=== PATIENT | female | born 1975 | race Caucasian/White ===

== ENCOUNTER 2016-04-11 12:10 | Emergency (ER) | payer OTHER, MEDICAID ==
[2016-04-11 12:21] VITALS: TEMP 97.9
--- NOTE | 2016-04-11 12:40 | CPEKG ---
Heart Rate: 81 RR Interval: 741 P-R Interval: 136 QRSD Interval: 84 QT Interval: 400 QTC Interval: 465 P Norco: 0 QRS Norco: 51 T Wave Norco: 40 EKG Severity - BORDERLINE ECG - EKG Impression: SINUS RHYTHM EKG Impression: BORDERLINE INFERIOR Q WAVES Electronically Signed By: Annmarie Castrejon 11-Apr-2016 16:31:26
[2016-04-11] MEDS ORDERED: IPRATROPIUM/ALBUTEROL 3 ML DEYVIAL IH ONE (12:56)
[2016-04-11 13:00] LABS: % IMMATURE GRANULYOCYTES 0.2 % (0.0-1.1); ABSOLUTE IMMATURE GRANULOCYTES 0.02 10^3/uL (0.00-0.10); ADD DIFF? NO; ADD MORPH? NO; ADD SCAN? NO; ATYPICAL LYMPHOCYTE FLAG 10 (0-99); FRAGMENT RBC FLAG 0 (0-99); HEMATOCRIT 39.3 % (38.0-47.0); LEFT SHIFT FLG 0 (0-99); LIPEMIA HEMOLYSIS FLAG 80 (0-99); MEAN CELL HEMOGLOBIN 30.8 pg (27.9-34.1); MEAN CELL HEMOGLOBIN CONCENTR. 33.1 g/dL (32.4-36.7); MEAN CELL VOLUME 93.1 fL (81.5-99.8); MEAN PLATELET VOLUME 10.4 fL (8.7-11.7); PLATELET CLUMPS FLAG 0 (0-99); PLATELET COUNT 339 10^3/uL (150-400); RED BLOOD CELL COUNT 4.22 10^6/uL (4.18-5.33); RED CELL DISTRIBUTION WIDTH 14.8 % (11.5-15.2)
[2016-04-11] MEDS ORDERED: LORazepam 2 MG/ML INJ IVP ONE (13:07)
--- NOTE | 2016-04-11 13:11 | EDPHY ---
H & P Stated Complaint: anxiety Source: Patient Exam Limitations: No limitations - Personal History LMP (Females 10-55): 1-7 Days Ago Current Tetanus Diphtheria and Acellular Pertussis (TDAP): Yes - Medical/Surgical History Hx Asthma: Yes Hx Chronic Respiratory Disease: No Hx Diabetes: No Hx Cardiac Disease: No Hx Renal Disease: No Hx Cirrhosis: No Hx Alcoholism: No Hx HIV/AIDS: No Hx Splenectomy or Spleen Trauma: No Other PMH: asthma, depression, aniety. - Family History Significant Family History: No pertinent family hx - Social History Smoking Status: Never smoked Alcohol Use: Rarely Drug Use: None Time Seen by Provider: 04/11/16 12:50 HPI/ROS: HPI: 40-year-old female presents to emergency department with chief concern anxiety, shortness of breath, non pleuritic 8/10 anterior chest pain 8/10 nonradiating. Symptoms onset suddenly last night when I had an asthma attack. [place] her asthma was flared up prior to bed and took 4 puffs of her albuterol rescue inhaler. Reports associated shortness of breath. Denies fever, dizziness , nasal congestion, cough, abdominal pain, nausea, vomiting, diarrhea. No lower extremity edema. Had a URI 2 weeks ago at which time her asthma was flared. Reports similar chest tightness when she has asthma attacks or anxiety attacks which she has from time to time. Denies personal or family history of coagulopathy, acute coronary syndrome, or coronary artery disease. Has a longstanding history of asthma that is well controlled on rescue inhaler only. No recent long car or plane travel. No calf pain or swelling. ROS:10 point review of systems is negative other than as stated in HPI (Yamileth Calix) - Social History Additional Social History: Lunch lady in the [employer] (Yamileth Calix) - Physical Exam Exam: Vital signs stable, reviewed by me General: Awake, alert, calm, cooperative. No acute distress. Head: Normalocephalic. Atraumatic. EENT: PERRLA. EOMI. No pallor or injection. Anicteric. No nystagmus. No injection. TMs intact bilaterally with normal landmarks. No rhinnorhea, nasal passages clear. Oropharynx without redness, exudates, or lesions. Tonsils 2+ bilaterally, no exudates. Neck: Supple, nontender. No lymphadenopathy. Full range of motion. No meningismus. Respiratory: Breathing unlabored. Breath sounds equal bilaterally and clear to auscultation. No adventitious sounds. CV: Chest nontender, atraumatic. Heart rate regular. No murmur, distal pulses 2+ bilaterally. No peripheral edema. Brisk cap refill all extremities. GI: Abdomen soft, nontender. Bowel sounds normoactive and positive x4 quadrants. Neuro: Alert. Oriented x 3. Speech clear. Nonfocal cranial nerves throughout. Sensation intact all extremities. Skin: Skin warm, dry, intact. No rashes, abrasions, or lacerations. Skin turgor normal. Extremities: Full range of motion in all 4 extremities. Strength 5+ all extremities. No calf pain or swelling bilaterally. Negative Homans bilaterally. (Yamileth Calix) Constitutional: Initial Vital Signs Temperature (C) 36.6 C 04/11/16 12:18 Heart Rate 80 04/11/16 12:18 Respiratory Rate 16 04/11/16 12:18 Blood Pressure 153/84 H 04/11/16 12:18 O2 Sat (%) 96 04/11/16 12:18 O2 Delivery Mode Room Air Allergies/Adverse Reactions: No Known Allergies Allergy (Unverified 06/23/12 14:27) Home Medications: Medication Instructions Recorded Miscellaneous Medical Supply [NO 06/23/12 HOME MEDS] Medical Decision Making - Diagnostics Imaging: Chest x-ray is consistent with reactive airway disease, no evidence of a focal infiltrate or consolidation--reviewed by myself, final report pending at time this dictation (Yamileth Calix) ED Course/Re-evaluation: 1310: 40-year-old female presents to emergency department with 8/10 anterior chest discomfort associated with shortness of breath that onset suddenly last night. Has similar chest discomfort when she has asthma attacks, or when she has anxiety attacks. No personal or family history of coagulopathy, or coronary artery disease. No calf pain or swelling. EKG shows a sinus rhythm with non pathologic Q-waves in 2, 3, AVF. No evidence of acute ischemia. Labs pending. Chest x-ray pending. Patient given DuoNeb, 1 mg IV Ativan. 1450: Chest pain has entirely resolved. Labs are fairly unremarkable. Troponin is negative. Patient has no shortness of breath. She is stable for discharge. (Yamileth Calix) Differential Diagnosis: Differential diagnosis includes but is not limited to anxiety, asthma, acute coronary syndrome, pneumothorax, pulmonary embolism (Yamileth Calix) Other Provider: The patient was evaluated and managed by the Physician Java Scal[employer] Developer/ Nurse Practitioner. I discussed the patient's presentation and course with the midlevel provider with them and agree with the evaluation. My co-signature indicates that I have reviewed this chart and I agree with the findings and plan of care as documented. I am the secondary supervising physician. (Annmarie Castrejon) - Data Points Laboratory Results: Laboratory Results 04/11/16 12:10 04/11/16 12:10 04/11/16 04/11/16 12:10 12:10 WBC 8.10 10^3/uL 10^3/uL (3.80-9.50) RBC 4.22 10^6/uL 10^6/uL (4.18-5.33) Hgb 13.0 g/dL g/dL (12.6-16.3) Hct 39.3 % % (38.0-47.0) MCV 93.1 fL fL (81.5-99.8) MCH 30.8 pg pg (27.9-34.1) MCHC 33.1 g/dL g/dL (32.4-36.7) RDW 14.8 % % (11.5-15.2) Plt Count 339 10^3/uL 10^3/uL (150-400) MPV 10.4 fL fL (8.7-11.7) Neut % (Auto) 52.3 % % (39.3-74.2) Lymph % (Auto) 38.0 % % (15.0-45.0) Amelia % (Auto) 6.7 % % (4.5-13.0) Eos % (Auto) 2.3 % % (0.6-7.6) Baso % (Auto) 0.5 % % (0.3-1.7) Nucleat RBC Rel Count 0.0 % % (0.0-0.2) Absolute Neuts (auto) 4.23 10^3/uL 10^3/uL (1.70-6.50) Absolute Lymphs (auto) 3.08 10^3/uL H 10^3/uL (1.00-3.00) Absolute Monos (auto) 0.54 10^3/uL 10^3/uL (0.30-0.80) Absolute Eos (auto) 0.19 10^3/uL 10^3/uL (0.03-0.40) Absolute Basos (auto) 0.04 10^3/uL 10^3/uL (0.02-0.10) Absolute Nucleated RBC 0.00 10^3/uL 10^3/uL (0-0.01) Immature Gran % 0.2 % % (0.0-1.1) Immature Gran # 0.02 10^3/uL 10^3/uL (0.00-0.10) Sodium 140 mEq/L mEq/L (134-144) Potassium 4.4 mEq/L mEq/L (3.5-5.2) Chloride 104 mEq/L mEq/L (97-110) Carbon Dioxide 24 mEq/l mEq/l (22-31) Anion Gap 12 mEq/L mEq/L (8-16) BUN 14 mg/dL mg/dL (7-23) Creatinine 0.6 mg/dL mg/dL (0.6-1.0) Estimated GFR > 60 Glucose 103 mg/dL H mg/dL (70-100) Calcium 9.7 mg/dL mg/dL (8.5-10.4) Troponin I < 0.012 ng/mL ng/mL (0-0.034) Medications Given: Discontinued Medications Albuterol/Ipratropium (Duoneb) 3 ml IH EDNOW ONE Stop: 04/11/16 12:57 Last Admin: 04/11/16 13:22 Dose: 3 ml Lorazepam (Ativan Injection) 1 mg IVP EDNOW ONE Stop: 04/11/16 13:08 Last Admin: 04/11/16 13:23 Dose: 1 mg Departure - Departure Disposition: Home, Routine, Self-Care Clinical Impression: Anxiety Chest pain Qualifiers: Chest pain type: unspecified Qualified Code(s): R07.9 - Chest pain, unspecified Asthma Qualifiers: Asthma severity: mild intermittent Asthma complication type: uncomplicated Qualified Code(s): J45.20 - Mild intermittent asthma, uncomplicated Condition: Good Instructions: Chest Pain (ED) Additional Instructions: Plan: Chest x-ray appears consistent with reactive airway disease/asthma. Final report is pending at time this dictation. If there further findings noted on final report, you will be notified promptly. Use your albuterol inhaler 2 puffs every 4-6 hours for shortness of breath, wheezing. Please follow-up with your primary care provider tomorrow for recheck without fail--When you call to schedule appointment, please let the office know you are an "ER follow up" appointment" Should symptoms worsen overnight, return promptly for recheck Referrals: STEPHY MESA DO [Other] - As per Instructions Stand Alone Forms: Work Excuse
[2016-04-11 13:15] LABS: ANION GAP 12 mEq/L (8-16); CALCIUM 9.7 mg/dL (8.5-10.4); CARBON DIOXIDE 24 mEq/l (22-31); CHLORIDE 104 mEq/L (97-110); CREATININE 0.6 mg/dL (0.6-1.0); GLOMERULAR FILTRATION RATE > 60; GLUCOSE 103 mg/dL (70-100); POTASSIUM 4.4 mEq/L (3.5-5.2); SODIUM 140 mEq/L (134-144)
[2016-04-11 13:26] LABS: TROPONIN I < 0.012 ng/mL (0-0.034)
[2016-04-11 15:39] VITALS: BP 120/92; PULSE 93; RESP 18; O2SAT 96
== END 2016-04-11 15:41 | disposition home or self-care (01) ==
LOC: EDUNIT# → EDBD
DX: F41.9 Anxiety disorder, unspecified (principal); R07.9 Chest pain, unspecified; J45.20 Mild intermittent asthma, uncomplicated
CPT/HCPCS: 96374